=== PATIENT | male | born 1995 ===

== ENCOUNTER 2017-03-29 18:36 | Emergency (ER) | payer OTHER ==
[2017-03-29 18:52] VITALS: BP 134/71
[2017-03-29] MEDS ORDERED: Acetaminophen TAB* 325 MG PO ONE (19:05)
--- NOTE | 2017-03-29 19:24 | UC ---
Respiratory Complaint HPI - HPI Summary HPI Summary: 22 year old male with cough. Senior at [employer]. Also with fever and congestion with plugged ear feeling and intermittent lightheadedness. Productive cough. Sore throat as well. No exposure to illness. Intermittent wheezing at times. Has had asthma in the past when a child but no meds at this time. No body aches. Symptoms for 5 days. No n/v/d. No significant neck pain but was in gymnastics the other day and rolled on to his neck and upper back and some tightness. UTD with vaccinations. 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 - History of Current Complaint Chief Complaint: UCRespiratory Stated Complaint: RESPIRATORY COMPLAINT Time Seen by Provider: 03/29/17 18:54 Hx Obtained From: Patient Onset/Duration: Gradual Onset Timing: Constant Severity Initially: Mild Severity Currently: Moderate - Allergies/Home Medications Allergies/Adverse Reactions: Allergies Allergy/AdvReac Type Severity Reaction Status Date / Time No Known Allergies Allergy Verified 03/29/17 18:41 Home Medications: Home Medications Naproxen TAB* [Naprosyn 250 mg TAB*] 250 mg PO Q8H PRN 03/29/17 [History Confirmed 03/29/17] PMH/Surg Hx/FS Hx/Imm Hx Previously Healthy: Yes - Surgical History Surgical History: Yes Surgery Procedure, Year, and Place: WISDOM TOOTH EXTRACTIONS JANUARY 2017 - Family History Known Family History: Negative: Cardiac Disease - Social History Occupation: Student - [employer] Alcohol Use: Rare Substance Use Type: None Smoking Status (MU): Never Smoked Tobacco - Immunization History Most Recent Influenza Vaccination: NOT IN 2017 Review of Systems Constitutional: Fever, Fatigue ENT: Sore Throat, Ear Ache, Nasal Discharge, Sinus Congestion, Sinus Pain/ Tenderness Respiratory: Shortness Of Breath - intermittent wheeze, Cough All Other Systems Reviewed And Are Negative: Yes Physical Exam Triage Information Reviewed: Yes Appearance: Well-Appearing, No Pain Distress, Well-Nourished Vital Signs: Initial Vital Signs Temp 101.6 F 03/29/17 18:42 Pulse 96 03/29/17 18:42 Resp 03/29/17 18:42 BP 134/71 03/29/17 18:42 Pulse Ox 99 03/29/17 18:42 Vital Signs Reviewed: Yes Eye Exam: Normal ENT Exam: Normal ENT: Positive: TM dull Dental Exam: Normal Neck exam: Normal Respiratory Exam: Normal Cardiovascular Exam: Normal Musculoskeletal Exam: Normal Neurological Exam: Normal Psychological Exam: Normal Skin Exam: Normal UC Diagnostic Evaluation - Laboratory O2 Sat by Pulse Oximetry: 99 Respiratory Course/Dx - Course Course Of Treatment: xray reading indicates ? SHAYLEE infiltrate -- sent over z pack -- recheck Xray in 4 weeks until resolution -- patient aware and will start and return for recheck in 4 weeks for CXR -- he was called at 2021 by nursing staff - Differential Dx/Diagnosis Differential Diagnosis/HQI/PQRI: Bronchitis, Laryngitis, Lower Resp Infection, Sinusitis Provider Diagnoses: Pneumonia Discharge - Discharge Plan Condition: Good Disposition: HOME Prescriptions: Albuterol HFA INHALER* [Ventolin HFA Inhaler*] 1 puff INH Q4H PRN #1 mdi PRN Reason: Cough Azithromyxin AVELINO (NF) [Z-Avleino (Zithromax) 250 mg tabs #6] 2 tab PO .TODAY, THEN 1 DAILY #6 tab Benzonatate [TESSALON 200 MG CAP] 200 mg PO TID #20 cap Patient Education Materials: Upper Respiratory Infection (ED) Forms: *School Release Referrals: Non Staff,Doctor [Medical Doctor] - Additional Instructions: Follow up here if there are any concerns.
--- NOTE | 2017-03-29 19:40 | RAD ---
INDICATION: Cough and shortness of breath. COMPARISON: There are no prior studies available for comparison. TECHNIQUE: Dual-energy PA and lateral views of the chest were obtained. FINDINGS: The heart is within normal limits in size. Mediastinal contours appear normal. There is a somewhat in usual infiltrate present in the left upper lobe. The lungs are otherwise clear. No pleural effusion is seen. IMPRESSION: SOMEWHAT UNUSUAL SHAPED LEFT UPPER LOBE INFILTRATE. RECOMMEND FOLLOW-UP CHEST X-RAYS TO RESOLUTION.
== END 2017-03-29 19:35 | disposition home or self-care (01) ==
LOC: UCCORT 18:36
DX: J18.9 Pneumonia, unspecified organism (principal)
CPT/HCPCS: 71020; 87651; 99202; A9270-GY; G0463